=== PATIENT | male | born 1990 | race Caucasian/White ===

== ENCOUNTER 2021-10-28 17:27 | Emergency (ER) | payer BC, SELFPAY ==
[2021-10-28 17:34] VITALS: BP 147/89; PULSE 92; RESP 16; TEMP 36.7; O2SAT 99
--- NOTE | 2021-10-28 17:40 | ED.URI ---
HPI - URI/Sore Throat General Chief Complaint: Upper Respiratory Infection Stated Complaint: Headache Time Seen by Provider: 10/28/21 17:40 Source: patient, RN notes reviewed and old records reviewed Mode of arrival: ambulatory Limitations: no limitations History of Present Illness HPI Narrative: 31 year old male who presents to [facility] care with complaints of 10 day history of sinus congestion drainage, sinus pressure and headache and dry throat with no difficulty or painful swallowing. Patient report that his nose is clogged and he has pressure to his face and forehead. He states that he has had sinus problems in the past and he usually has sinus infections a couple times a years usually when seasons change. he reports that he has been taking Tylenol sinus severe and ibuprofen for his symptoms with no resolution. Patient reports no fevrs, chills or sweats or any body aches, he states that he has had COVID vaccinations. MD elicited complaint: rhinorrhea, nasal congestion and sinus pain Pertinent past history: sinusitis and asthma Related Data Home Medications Medication Instructions Recorded Confirmed cetirizine [Zyrtec] 10 mg PO DAILY 10/28/21 10/28/21 losartan 10/28/21 sumatriptan succinate mg PO 10/28/21 Allergies Allergy/AdvReac Type Severity Reaction Status Date / Time amoxicillin Allergy Severe swelling Verified 10/28/21 17:34 Review of Systems Review of Systems: CONSTITUTIONAL: Denies fever, chills, or sweats. EYES: Denies visual changes, redness, or discharge. ENT: Positive rhinorrhea, congestion, no sore throat, or otalgia, positive facial pressure CARDIOVASCULAR: Denies chest pain, palpitations, or edema. RESPIRATORY: Denies cough or dyspnea. GASTROINTESTINAL: Denies abdominal pain, nausea, vomiting, or diarrhea. GENITOURINARY: Denies dysuria or hematuria. SKIN: Denies rash or itching. MUSCULOSKELETAL: Denies back pain, joint pain, or myalgia. NEUROLOGIC: Frontal headache, no numbness, or weakness. PSYCHIATRIC: Denies anxiety or depression. All systems reviewed & are unremarkable except as noted in HPI and below PMFSH Past Medical History Medical History (Updated 10/28/21 @ 17:57 by Celia López NP) Asthma As child Hx of migraines Hypertension Sinusitis Social History Social History (Updated 10/28/21 @ 17:58 by Celia López NP) Smoking status: Never smoker Alcohol intake: current Alcohol use details: Rare social Substance use type: does not use Living arrangements: with family Gender identity (if verbalized by the patient): Male Comments At time of signature, agree with nursing past medical, surgical, social and family history. There is no relevant family history pertinent to the presenting complaint Exam Narrative: GENERAL: Well-appearing, well-nourished, and in no acute distress. HEAD: Normocephalic, atraumatic. EYES: PERRLA and EOMI. ENT: Nares red swollen with clear rhinorrhea no epistaxis. Mucous membranes moist. TMs normal with dull light reflex, throat with mild redness no lesions or exudates no tonsillar swelling, postnasal drainage noted NECK: Supple. No lymph adenopathy CHEST: Clear to auscultation. No respiratory distress. Respirations even and nonlabored SaO2 99% on room air HEART: Regular rate and rhythm. No murmur heard. Normal peripheral pulses. ABDOMEN: Soft, nontender, nondistended, normal active bowel sounds. EXTREMITIES: Normal range of motion. No edema. SKIN: Warm, dry, no rash. NEURO: No focal deficits. Alert and oriented x3. Course Course Level of Care: Express Care Visit Vital Signs Vital signs: Vital Signs Temperature 36.7 C 10/28/21 17:34 Pulse Rate 92 10/28/21 17:34 Respiratory Rate 16 10/28/21 17:34 Blood Pressure 147/89 H 10/28/21 17:34 Pulse Oximetry 99 10/28/21 17:34 Temperature 36.7 C 10/28/21 17:34 Pulse Rate 92 10/28/21 17:34 Respiratory Rate 16 10/28/21 17:34 Blood Pressure 147/89 H 10/28/21
== END 2021-10-28 17:55 | disposition home or self-care (01) ==
PROVIDERS: Emergency Provider Registered Nurse; PCP Family Medicine
DX: J32.9 Chronic sinusitis, unspecified (principal); I10 Essential (primary) hypertension
CPT/HCPCS: 99213; G0463